=== PATIENT | female | born 1980 | race Two or more races ===

== ENCOUNTER 2020-09-29 06:34 | Emergency (ER) | payer SELFPAY ==
[~2020-09-29] VITALS: Ht 185.4 cm; Wt 105.3 kg
--- NOTE | 2020-09-29 07:00 | PHYS DOC ---
Past History Past Medical History: Diabetes, Hypertension Past Surgical History: Tubal ligation General Adult EDM: Chief Complaint: ABDOMINAL PAIN HPI: HPI: Patient is a 40-year-old female who presents to ER today for evaluation of low abdominal pain with nausea and some loose stool for the last 3 days. Patient denies any cough or fever. Patient also complain of frequent urination. Patient denies being exposed to anybody who tested positive for COVID-19. Patient has history of diabetic, on insulin. He also has history of hypertension in the past, was on medication in the past but had not been on any medication for the last year because her blood pressure was normalized. Patient said whenever she comes to the hospital her blood pressure always elevated. Patient denies any chest pain or any trouble breathing. Review of Systems: Review of Systems: Constitutional: Denies fever or chills Eyes: Denies change in visual acuity HENT: Denies nasal congestion or sore throat Respiratory: Denies cough or shortness of breath Cardiovascular: Denies chest pain or edema GI: Positive for abdominal pain with nausea, loose stool, no vomiting. : Denies dysuria . Denies any rash in private area. Positive for urinary frequency Musculoskeletal: Denies back pain or joint pain Integument: Denies rash Neurologic: Denies headache, focal weakness or sensory changes Endocrine: Denies polyuria or polydipsia Lymphatic: Denies swollen glands Psychiatric: Denies depression or anxiety Allergies: Allergies: Allergies Coded Allergies Type Severity Reaction Last Updated Verified No Known Drug Allergies 09/29/20 No Physical Exam: PE: Constitutional: Well developed, well nourished, no acute distress, non-toxic appearance. [] HENT: Normocephalic, atraumatic, bilateral external ears normal, oropharynx moist, no oral exudates, nose normal. [] Eyes: PERRLA, EOMI, conjunctiva normal, no discharge. [] Neck: Normal range of motion, no tenderness, supple, no stridor. [] Cardiovascular:Heart rate regular rhythm, no murmur [] Lungs & Thorax: Bilateral breath sounds clear to auscultation [] Abdomen: Bowel sounds normal, soft, there is tenderness to palpation in suprapubic area, no masses, no pulsatile masses. [] Skin: Warm, dry, no erythema, no rash. [] Back: No tenderness, no CVA tenderness. [] Extremities: No tenderness, no cyanosis, no clubbing, ROM intact, no edema. [] Neurologic: Alert and oriented X 3, normal motor function, normal sensory function, no focal deficits noted. [] Psychologic: Affect normal, judgement normal, mood normal. [] Current Patient Data: Labs: Laboratory Tests Test 09/29/20 07:30 White Blood Count 6.6 x10^3/uL Red Blood Count 3.58 x10^6/uL Hemoglobin 10.0 g/dL Hematocrit 31.7 % Mean Corpuscular Volume 88 fL Mean Corpuscular Hemoglobin 28 pg Mean Corpuscular Hemoglobin Concent 32 g/dL Red Cell Distribution Width 15.8 % Platelet Count 323 x10^3/uL Neutrophils (%) (Auto) 70 % Lymphocytes (%) (Auto) 20 % Monocytes (%) (Auto) 7 % Eosinophils (%) (Auto) 3 % Basophils (%) (Auto) 1 % Neutrophils # (Auto) 4.6 x10^3uL Lymphocytes # (Auto) 1.3 x10^3/uL Monocytes # (Auto) 0.4 x10^3/uL Eosinophils # (Auto) 0.2 x10^3/uL Basophils # (Auto) 0.1 x10^3/uL Urine Collection Type Unknown Urine Color Yellow Urine Clarity Hazy Urine pH 7.0 Urine Specific Healy 1.020 Urine Protein Neg Urine Glucose (UA) >=1000 mg/dL Urine Ketones (Stick) Neg mg/dL Urine Blood Trace Urine Nitrite Neg Urine Bilirubin Neg Urine Urobilinogen Dipstick 0.2 mg/dL Urine Leukocyte Esterase Small Urine RBC 3-5 /HPF Urine WBC 11-20 /HPF Urine Squamous Epithelial Cells Mod /LPF Urine Bacteria Few /HPF Urine Trichomonas Present Sodium Level 132 mmol/L Potassium Level 4.2 mmol/L Chloride Level 99 mmol/L Carbon Dioxide Level 27 mmol/L Anion Gap 6 Blood Urea Nitrogen 16 mg/dL Creatinine 1.1 mg/dL Estimated GFR (Cockcroft-Gault) 54.5 BUN/Creatinine Ratio 15 Glucose Level 402 mg/dL Calcium Level 9.5 mg/dL Total Bilirubin 0.4 mg/dL Aspartate Amino Transf (AST/SGOT) 26 U/L Alanine Aminotransferase (ALT/SGPT) 32 U/L Alkaline Phosphatase 61 U/L Total Protein 7.1 g/dL Albumin 3.6 g/dL Albumin/Globulin Ratio 1.0 Lipase 50 U/L Current Medications Medications (Trade) Dose Ordered Sig/Dileep Route PRN Reason Start Time Stop Time Status Last Admin Dose Admin Ondansetron HCl (Zofran) 4 mg 1X ONCE IVP 09/29/20 07:15 09/29/20 07:16 DC 09/29/20 07:34 Sodium Chloride 1,000 ml @ 1,000 mls/hr 1X ONCE IV 09/29/20 08:30 09/29/20 09:29 Morphine Sulfate (Morphine 4mg Syringe) 4 mg 1X ONCE IV 09/29/20 08:30 09/29/20 08:31 DC Ceftriaxone Sodium 1 gm/ Sodium Chloride 50 ml @ 100 mls/hr 1X ONCE IV 09/29/20 08:30 09/29/20 08:59 DC Iohexol (Omnipaque 300 Mg/ml) 75 ml 1X ONCE IV 09/29/20 08:30 09/29/20 08:35 DC EKG: EKG: [] Radiology/Procedures: Radiology/Procedures: [place] [address] IMAGING REPORT Signed PATIENT: OLMAN PEDROZA ACCOUNT: [id number] : 1980 LOCATION: ER AGE: 40 SEX: F EXAM STATUS: REG ER ORD. PHYSICIAN: JUWAN ALMONTE DO REASON: LOWER ABDOMINAL PAIN PROCEDURE: CT ABD PELV W/ IV CONTRST ONLY CT ABD PELV W/ IV CONTRST ONLY History: LOWER ABDOMINAL PAIN Comparison: None. Technique: After administration of intravenous contrast, helical CT of the abdomen and pelvis was performed from the lung bases through the ischial tuberosities. Coronal and sagittal reconstructions were obtained. 75 mL of Omnipaque 350 were used. One or more of the following dose reduction techniques were utilized: Automated exposure control (AEC), Adjustment of mA and/or kV according to patient size, Use of iterative reconstruction technique such as ASiR, CT scan done according to ALARA and image gently/image wisely Abdomen Findings: The visualized lung bases are clear. The liver, gallbladder, pancreas, spleen, and bilateral adrenal glands are normal. Symmetric renal enhancement. Punctate bilateral nonobstructive renal calculi. There is no hydronephrosis. The visualized loops of small bowel are normal. Normal caliber large bowel. Large colonic stool burden. Appendix is normal. There is no free fluid. There is no mesenteric or retroperitoneal adenopathy. The abdominal aorta is normal in caliber. Pelvis Findings: Urinary bladder is normal. Uterus is present. Right adnexal 2 cm cyst, likely physiologic. Mild pelvic free fluid. There is no pelvic or inguinal adenopathy. Mild chronic appearing height loss at T10. IMPRESSION: 1. No acute findings. 2. Large colonic stool burden, which may reflect constipation. 3. Punctate bilateral nonobstructive renal calculi. Electronically signed by: Dre Cervantes MD (09/29/2020 9:07 AM) [id number] DICTATED AND SIGNED BY: DRE CERVANTES MD DATE: 09/29/20906 CC: MANOJ ARRIETA; JUWAN ALMONTE DO ~MTH0 0 Heart Score: Risk Factors: Risk Factors: DM, Current or recent (<one month) smoker, HTN, HLP, family history of CAD, obesity. Risk Scores: Score 0 - 3: 2.5% MACE over next 6 weeks - Discharge Home Score 4 - 6: 20.3% MACE over next 6 weeks - Admit for Clinical Observation Score 7 - 10: 72.7% MACE over next 6 weeks - Early Invasive Strategies Course & Med Decision Making: Course & Med Decision Making Pertinent Labs and Imaging studies reviewed. (See chart for details) Patient is a 40-year-old female who presented to ER due to abdominal pain, she was found to have trichomonas, UTI, constipation, hypertension. Her blood pressure improved to 150/100 with a heart rate of 74 beats per minutes, without any treatment. Patient will be discharged home she will need to follow-up with her family physician for reevaluation in a couple days. She was given instruction to take stool softener or laxative at home for her constipation Sana Disclaimer: Sana Disclaimer: This electronic medical record was generated, in whole or in part, using a voice recognition dictation system. Departure Departure: Impression: Primary Impression: Abdominal pain Additional Impressions: Hypertension Trichomonal infection Hyperglycemia UTI (urinary tract infection) Disposition: 01 DC HOME SELF CARE/HOMELESS Condition: IMPROVED Referrals: PCPMANOJ (PCP) follow up with your doctor next week. Patient Instructions: Constipation, Adult, Hypertension, Trichomoniasis, Urinary Tract Infection Additional Instructions: Thank you for visiting our Emergency Department. We appreciate you trusting us with your care. If any additional problems come up don't hesitate to return to visit us. Please follow up with your primary care provider so they can plan additional care if needed and know about the problem that you had. If symptoms worsen come back to the Emergency Department. Any concerning symptoms that start such as chest pain, shortness of air, weakness or numbness on one side of the body, running high fevers or any other concerning symptoms return to the ER. Scripts Sulfamethoxazole/Trimethoprim (BACTRIM DS TABLET) 1 Each Tablet 1 TAB PO BID for uti for 7 Days, #14 TAB 0 Refills Prov: JUWAN ALMONTE DO 09/29/20 Metronidazole (FLAGYL) 500 Mg Tablet 1 TAB PO BID for trichomonas for 7 Days, #14 TAB Prov: JUWAN ALMONTE DO 09/29/20 JUWAN ALMONTE DO Sep 29, 2020 07:00
[2020-09-29] MEDS ORDERED: ONDANSETRON PF 4 MG/2 ML VIAL. IVP ONE (07:15)
[2020-09-29 07:58] LABS: BASO # 0.1 x10^3/uL (0.0-0.2); BASO % 1 % (0-3); EOS # 0.2 x10^3/uL (0.0-0.7); EOS % 3 % (0-3); HEMATOCRIT 31.7 % (36.0-47.0); LYMPH # 1.3 x10^3/uL (1.0-4.8); LYMPH % 20 % (24-48); MEAN CORPUSCULAR HEMOGLOBIN 28 pg (25-35); MEAN CORPUSCULAR HGB CONC 32 g/dL (31-37); MEAN CORPUSCULAR VOLUME 88 fL (79-100); MONO # 0.4 x10^3/uL (0.0-1.1); MONO % 7 % (0-9); NEUT # 4.6 x10^3uL (1.8-7.7); NEUT % 70 % (31-73); PLATELET COUNT 323 x10^3/uL (140-400); RED BLOOD COUNT 3.58 x10^6/uL (3.50-5.40); RED CELL DISTRIBUTION WIDTH 15.8 % (11.5-14.5); WHITE BLOOD COUNT 6.6 x10^3/uL (4.0-11.0)
[2020-09-29 08:06] LABS: CALCIUM 9.5 mg/dL (8.5-10.1); CREATININE 1.1 mg/dL (0.6-1.0); GFR 54.5; POTASSIUM 4.2 mmol/L (3.5-5.1)
[2020-09-29 08:12] LABS: ALBUMIN 3.6 g/dL (3.4-5.0); TOTAL BILIRUBIN 0.4 mg/dL (0.2-1.0); TOTAL PROTEIN 7.1 g/dL (6.4-8.2)
[2020-09-29 08:18] LABS: BILIRUBIN,URINE NEG (NEG); CLARITY,URINE HAZY; COLOR,URINE YELLOW; GLUCOSE,URINE >=1000 mg/dL (NEG)
[2020-09-29 08:19] LABS: BACTERIA,URINE FEW /HPF (0-FEW); NITRITE,URINE NEG (NEG); SQUAMOUS EPITHELIAL CELL,UR MOD /LPF; TRICHOMONAS,URINE PRESENT; UROBILINOGEN,URINE 0.2 mg/dL (0.2 mg/dL)
[2020-09-29] MEDS ORDERED: IV NORMAL SALINE 1,000ML 1,000 ML IV ONE (08:30)
[2020-09-29] MEDS ORDERED: MORPHINE SULFATE 4 MG/ML DISP.SYRIN. IV ONE (08:30)
[2020-09-29] MEDS ORDERED: IOHEXOL 300 MG/ML 75 ML VIAL. IV ONE (08:30)
--- NOTE | 2020-09-29 09:10 | RAD ---
CT ABD PELV W/ IV CONTRST ONLY History: LOWER ABDOMINAL PAIN Comparison: None. Technique: After administration of intravenous contrast, helical CT of the abdomen and pelvis was performed from the lung bases through the ischial tuberosities. Coronal and sagittal reconstructions were obtained. 75 mL of Omnipaque 350 were used. One or more of the following dose reduction techniques were utilized: Automated exposure control (AEC), Adjustment of mA and/or kV according to patient size, Use of iterative reconstruction technique such as ASiR, CT scan done according to ALARA and image gently/image wisely Abdomen Findings: The visualized lung bases are clear. The liver, gallbladder, pancreas, spleen, and bilateral adrenal glands are normal. Symmetric renal enhancement. Punctate bilateral nonobstructive renal calculi. There is no hydronephrosis. The visualized loops of small bowel are normal. Normal caliber large bowel. Large colonic stool burden. Appendix is normal. There is no free fluid. There is no mesenteric or retroperitoneal adenopathy. The abdominal aorta is normal in caliber. Pelvis Findings: Urinary bladder is normal. Uterus is present. Right adnexal 2 cm cyst, likely physiologic. Mild pelvic free fluid. There is no pelvic or inguinal adenopathy. Mild chronic appearing height loss at T10. IMPRESSION: 1. No acute findings. 2. Large colonic stool burden, which may reflect constipation. 3. Punctate bilateral nonobstructive renal calculi. Electronically signed by: Ajit Cervantes MD (09/29/2020 9:07 AM) [id number]
[2020-09-29] MEDS ORDERED: IV NORMAL SALINE 50ML 50 ML ONE (09:57)
[2020-09-29] MEDS ORDERED: cefTRIAXone SODIUM 1 GM VIAL ONE (09:57)
[2020-09-29] MEDS ORDERED: SULF1TAB24 PO (10:26)
[2020-09-29] MEDS ORDERED: METR500T PO (10:26)
[2020-09-29 10:27] VITALS: BP 157/89
== END 2020-09-29 11:05 | disposition home or self-care (01) ==
LOC: ER 06:34
DX: N39.0 Urinary tract infection, site not specified (principal); E11.65 Type 2 diabetes mellitus with hyperglycemia; A59.9 Trichomoniasis, unspecified; I10 Essential (primary) hypertension; Z98.51 Tubal ligation status
CPT/HCPCS: 36415; 74177; 80053; 81001; 82947; 83690; 85025; 87086; 96365; 96375; 99285; J0696; J2270; J2405; J7030

== ENCOUNTER → 2020-11-05 | Outpatient (CLI) | payer OTHER ==
[~2020-11-05] MED LIST: METR500T PO; SULF1TAB24 PO
--- NOTE | 2020-11-05 17:30 | RAD ---
US THYROID History: Reason: PAIN/SWELLING OF NECK; HX OF GRAVES DISEASE / Spl. Instructions: / History: Comparison: None. Technique: Multiple grayscale and color Doppler images of the thyroid gland were obtained. Findings: Right thyroid lobe: 2.4 x 0.8 x 0.9 cm. Heterogeneous echotexture. Left thyroid lobe: 3.1 x 0.9 x 0.6 cm. Heterogeneous echotexture. Isthmus: 0.2 cm. Solid hypoechoic left inferior thyroid nodule measures 0.8 x 0.8 x 0.5 cm. TI-RADS 4. ACR Thyroid Imaging, Reporting And Data System (TI-RADS): White Paper Of The ACR TI-RADS Committee. J ournal of the [employer], volume 14, issue 5, pages 587-595 (March 2017). Heterogeneous lesion within the right neck measures 1.5 x 0.8 x 0.7 cm. No discrete fatty hilum. IMPRESSION: 1. Small heterogeneous thyroid, compatible with known history of thyroiditis. 2. Heterogeneous right neck lesion, may represent pathologic lymph node. Recommend CT neck soft tiss ue to further evaluate. 3. TI-RADS 4 left inferior thyroid nodule. Recommend ultrasound follow-up. Depending on results of C T fine-needle aspiration may be warranted. Electronically signed by: Bill Pagan DO (11/05/2020 5:27 PM) [id number]
== END ==
LOC: US 09:57
PROVIDERS: ATTEND Nurse Practitioner
DX: E04.1 Nontoxic single thyroid nodule (principal)
CPT/HCPCS: 76536

== ENCOUNTER 2021-05-20 17:45 | Emergency (ER) | payer OTHER ==
[~2021-05-20] VITALS: Ht 185.4 cm; Wt 105.3 kg
[2021-05-20 17:50] VITALS: BP 151/86
[2021-05-20] MEDS ORDERED: DEXTROSE 50% 25 GM / 50ML DISP.SYRIN. IV ONE (18:00)
[2021-05-20 18:23] LABS: BASO % 0 % (0-3); CALCIUM 10.2 mg/dL (8.5-10.1); EOS # 0.3 x10^3/uL (0.0-0.7); EOS % 4 % (0-3); GFR 60.5; HEMATOCRIT 32.3 % (36.0-47.0); HEMOGLOBIN 10.4 g/dL (12.0-15.5); LYMPH # 2.6 x10^3/uL (1.0-4.8); LYMPH % 37 % (24-48); MEAN CORPUSCULAR HEMOGLOBIN 29 pg (25-35); MEAN CORPUSCULAR HGB CONC 32 g/dL (31-37); MEAN CORPUSCULAR VOLUME 90 fL (79-100); MONO # 0.4 x10^3/uL (0.0-1.1); MONO % 6 % (0-9); NEUT # 3.8 x10^3uL (1.8-7.7); NEUT % 53 % (31-73); PLATELET COUNT 410 x10^3/uL (140-400); POTASSIUM 3.8 mmol/L (3.5-5.1); RED CELL DISTRIBUTION WIDTH 14.9 % (11.5-14.5); WHITE BLOOD COUNT 7.2 x10^3/uL (4.0-11.0)
[2021-05-20 18:29] LABS: ALBUMIN/GLOBULIN RATIO 1.1 (1.0-1.7); MAGNESIUM 2.2 mg/dL (1.8-2.4); TOTAL BILIRUBIN 0.4 mg/dL (0.2-1.0); TOTAL PROTEIN 7.8 g/dL (6.4-8.2)
--- NOTE | 2021-05-20 18:47 | PHYS DOC ---
Past History Past Medical History: Diabetes, Hypertension Additional Past Medical Histor: NEUROPATHY, GRAVES DISEASE, HERPES Past Surgical History: Tubal ligation Additional Past Surgical Histo: CARPAL TUNNEL, R ANKLE, L ELBOW Smoking: Quit Less Than 1 Year Alcohol Use: Rarely Drug Use: None General Adult EDM: Chief Complaint: HYPOGLYCEMIA HPI: HPI: Patient is a 41 year old female who presents with low blood sugar. Patient has a history of type 2 diabetes and her medication was changed from Lantus to Levemir yesterday. She took the Levemir this morning and also states using 4 units of regular insulin during the day. She states her blood glucose was at 88 around 5 pm and it dropped after that. She states the lowest was 43 before she came in to the ED. She says she drank juice but that did not help. She complains of mild dizziness and nausea. Denies chest pain, SOB. Denies vision changes but has a mild headache. She reports her glucose levels fluctuate and similar incidents have happened before. Review of Systems: Review of Systems: Constitutional: Denies fever or chills Eyes: Denies redness or eye pain. Denies vision changes HENT: Denies nasal congestion or sore throat Respiratory: Denies cough or shortness of breath Cardiovascular: Denies chest pain or palpitations GI: Denies abdominal pain or vomiting. Has mild nausea : Denies dysuria or hematuria Musculoskeletal: Denies back pain or joint pain Integument: Denies rash or skin lesions Neurologic: Has mild headache. Denies focal weakness or sensory changes Complete systems were reviewed and found to be within normal limits, except as documented in this note. Current Medications: Current Meds: Current Medications Medications (Trade) Dose Ordered Sig/[facility] Start Time Stop Time Status Last Admin Dose Admin Dextrose (Dextrose 50%-Water Syringe) 25 gm 1X ONCE 05/20/21 18:00 05/20/21 18:03 DC 05/20/21 18:14 25 GM Allergies: Allergies: Allergies Coded Allergies Type Severity Reaction Last Updated Verified No Known Drug Allergies 09/29/20 No Physical Exam: PE: Constitutional: Well developed, well nourished, drowsy HENT: Normocephalic, atraumatic Eyes: PERRL, EOMI, conjunctiva normal, no discharge Neck: Normal range of motion, no tenderness, supple Lungs & Thorax: No respiratory distress, equal chest rise and fall Abdomen: Soft, no tenderness Skin: Warm, dry, no erythema, no rash Back: No tenderness, no CVA tenderness Extremities: No tenderness, ROM intact, no edema Neurologic: Alert and oriented X 3, normal motor function, normal sensory function, no focal deficits noted Psychologic: Affect normal, judgment normal Current Patient Data: Labs: Laboratory Tests Test 05/20/21 17:30 05/20/21 17:49 White Blood Count 7.2 x10^3/uL (4.0-11.0) Red Blood Count 3.60 x10^6/uL (3.50-5.40) Hemoglobin 10.4 g/dL (12.0-15.5) L Hematocrit 32.3 % (36.0-47.0) L Mean Corpuscular Volume 90 fL (79-100) Mean Corpuscular Hemoglobin 29 pg (25-35) Mean Corpuscular Hemoglobin Concent 32 g/dL (31-37) Red Cell Distribution Width 14.9 % (11.5-14.5) H Platelet Count 410 x10^3/uL (140-400) H Neutrophils (%) (Auto) 53 % (31-73) Lymphocytes (%) (Auto) 37 % (24-48) Monocytes (%) (Auto) 6 % (0-9) Eosinophils (%) (Auto) 4 % (0-3) H Basophils (%) (Auto) 0 % (0-3) Neutrophils # (Auto) 3.8 x10^3uL (1.8-7.7) Lymphocytes # (Auto) 2.6 x10^3/uL (1.0-4.8) Monocytes # (Auto) 0.4 x10^3/uL (0.0-1.1) Eosinophils # (Auto) 0.3 x10^3/uL (0.0-0.7) Basophils # (Auto) 0.0 x10^3/uL (0.0-0.2) Sodium Level 142 mmol/L (136-145) Potassium Level 3.8 mmol/L (3.5-5.1) Chloride Level 103 mmol/L (98-107) Carbon Dioxide Level 32 mmol/L (21-32) Anion Gap 7 (6-14) Blood Urea Nitrogen 18 mg/dL (7-20) Creatinine 1.0 mg/dL (0.6-1.0) Estimated GFR (Cockcroft-Gault) 60.5 BUN/Creatinine Ratio 18 (6-20) Glucose Level 55 mg/dL (70-99) L Calcium Level 10.2 mg/dL (8.5-10.1) H Magnesium Level 2.2 mg/dL (1.8-2.4) Total Bilirubin 0.4 mg/dL (0.2-1.0) Aspartate Amino Transferase (AST) 27 U/L (15-37) Alanine Aminotransferase (ALT) 37 U/L (14-59) Alkaline Phosphatase 57 U/L (46-116) Total Protein 7.8 g/dL (6.4-8.2) Albumin 4.0 g/dL (3.4-5.0) Albumin/Globulin Ratio 1.1 (1.0-1.7) Glucose (Fingerstick) 57 mg/dL (70-99) L Vital Signs: Vital Signs Date Time Temp Pulse Resp B/P (MAP) Pulse Ox O2 Delivery O2 Flow Rate FiO2 05/20/21 17:50 98.3 66 16 151/86 99 Room Air EKG: EKG: [] Radiology/Procedures: Radiology/Procedures: [] Heart Score: C/O Chest Pain: N/A Course & Med Decision Making: Course & Med Decision Making Patient is a 41 year old female presenting due to symptomatic hypoglycemia. She noted her fingerstick glucose was 43 at home. She switched from Lantus to Levemir yesterday. Patient has had similar events in the recent past. Her glucose was 55 upon arrival. She was given IV Dextrose 50% and she ate food in the ED. Her glucose prior to discharge was 154. Urinalysis showed signs of a possible infection, moderate pyuria and many bacteria. Antibiotic treatment started and Cephalexin prescribed. Patient counseled to decrease Levemir to 10units in AM and PM with sliding scale in between and increase slowly. Patient stable for discharge with outpatient follow-up with PCP. Discussed findings and plan with patient, who acknowledges understanding and agreement. Sana Disclaimer: Sana Disclaimer: This electronic medical record was generated, in whole or in part, using a voice recognition dictation system. Departure Departure: Impression: Primary Impression: Hypoglycemia Additional Impression: UTI (urinary tract infection) Qualified Codes: N30.00 - Acute cystitis without hematuria Disposition: HOME / SELF CARE / HOMELESS Condition: STABLE Referrals: AMILCAR ZHOU MD (PCP) Patient Instructions: Hypoglycemia (Low Blood Sugar), Urinary Tract Infection, [id number] Additional Instructions: Decrease Levemir to 10units in AM and PM with sliding scale in between. May slowly increase by 2 units if requiring increased sliding scale. Follow closely with your doctor for further evaluation. Scripts Cephalexin (CEPHALEXIN) 500 Mg Tablet 1 TAB PO TID for UTI for 7 Days, #21 TAB Prov: SARA PACHECO DO 05/20/21 SARA PACHECO DO May 20, 2021 18:47
[2021-05-20 20:36] LABS: BILIRUBIN,URINE NEG (NEG); CLARITY,URINE TURBID; COLOR,URINE YELLOW; GLUCOSE,URINE 100 mg/dL (NEG); NITRITE,URINE NEG (NEG); UROBILINOGEN,URINE 0.2 mg/dL (0.2 mg/dL)
[2021-05-20 20:37] LABS: BACTERIA,URINE MANY /HPF (0-FEW); SQUAMOUS EPITHELIAL CELL,UR FEW /LPF
[2021-05-20] MEDS ORDERED: IV NORMAL SALINE 50ML 50 ML ONE (20:46)
[2021-05-20] MEDS ORDERED: cefTRIAXone SODIUM 1 GM VIAL ONE (20:46)
[2021-05-20] MEDS ORDERED: CEPH500T PO ×2 (21:14→21:17)
== END 2021-05-20 21:21 | disposition home or self-care (01) ==
LOC: ER 17:45
DX: E11.649 Type 2 diabetes mellitus with hypoglycemia without coma (principal); N30.00 Acute cystitis without hematuria; I10 Essential (primary) hypertension; E11.40 Type 2 diabetes mellitus with diabetic neuropathy, unspecified; Z87.891 Personal history of nicotine dependence
CPT/HCPCS: 36415; 80053; 81001; 82947; 83735; 85025; 87077; 87086; 87186; 96365; 96375; 99284; J0696

== ENCOUNTER 2021-06-24 16:20 | Emergency (ER) | payer OTHER ==
[~2021-06-24] VITALS: Ht 185.4 cm; Wt 103.8 kg
[~2021-06-24 16:20] MED LIST changes: +CEPH500T PO
--- NOTE | 2021-06-24 17:21 | PHYS DOC ---
Past History Past Medical History: Diabetes, Hypertension Additional Past Medical Histor: NEUROPATHY, GRAVES DISEASE, HERPES (TITO SALGUERO APRN) Past Surgical History: Tubal ligation, Other Additional Past Surgical Histo: CARPAL TUNNEL, R ANKLE, L ELBOW (TITO SALGUERO APRN) Smoking: Quit Less Than 1 Year Alcohol Use: Rarely Drug Use: None (TITO SALGUERO APRN) General Adult EDM: Chief Complaint: LOWER EXTREMITY SWELLING HPI: HPI: Patient is a 41-year-old female being seen in the ER for diabetic ulcers to her heels that started 2 weeks ago. Patient has a history of diabetes and neuropathy. Patient denies shortness of breath, chest pain, fevers, inability to bear weight/ambulate. (TITO SALGUERO APRN) Review of Systems: Review of Systems: 14 body systems of the review of systems have been reviewed. See HPI for pertinent positive and negative responses, otherwise all other systems are negative, nonpertinent or noncontributory (TITO SALGUERO APRN) Allergies: Allergies: Allergies Coded Allergies Type Severity Reaction Last Updated Verified No Known Drug Allergies 09/29/20 No (TITO SALGUERO APRN) Physical Exam: PE: Constitutional: Well developed, well nourished, no acute distress, non-toxic appearance. [] HENT: Normocephalic, atraumatic Eyes: PERRL, EOMI, conjunctiva normal, no discharge. [] Neck: Normal range of motion, no tenderness, supple, no stridor. [] Cardiovascular:Heart rate regular rhythm, no murmur [] Lungs & Thorax: Bilateral breath sounds clear to auscultation [] Abdomen: Bowel sounds normal, soft, no tenderness, no masses, no pulsatile masses. [] Skin: Warm, dry, no erythema, no rash. [] Back: Normal range of motion Extremities: No tenderness, no cyanosis, no clubbing, ROM intact, no edema. 2 cm ulceration noted to the heel of the right foot. 4 cm ulceration noted to the heel of the left foot. Strong DP and PT pulses bilaterally. Range of motion intact leg. Neurologic: Alert and oriented X 3, normal motor function, normal sensory func tion, no focal deficits noted. [] Psychologic: Affect normal, judgement normal, mood normal. [] (TITO SALGUERO APRN) Current Patient Data: Vital Signs: Vital Signs Date Time Temp Pulse Resp B/P (MAP) Pulse Ox O2 Delivery O2 Flow Rate FiO2 06/24/21 16:45 98.5 64 16 173/87 100 Room Air (TITO SALGUERO APRN) EKG: EKG: [] (TITO SALGUERO APRN) Radiology/Procedures: Radiology/Procedures: PROCEDURE: FOOT BILAT 2V Exam: Bilateral feet 2 views INDICATION: Bilateral foot pain TECHNIQUE: Frontal and lateral views of the left and right foot. Comparisons: None FINDINGS: Left foot: Bone mineralization is normal. No acute or healed fractures. Soft tissues are unremarkable. Joint spaces are well-maintained. Right foot: Bone mineralization is normal. No acute or healed fractures. Soft tissues are unremarkable. Joint spaces are well-maintained. Fixation device at the distal fibula and tibia. IMPRESSION: No acute osseous abnormality of the right foot or left foot Electronically signed by: Michael Morales MD (06/24/2021 7:10 PM) [facility] DICTATED AND SIGNED BY: MICHAEL MORALES MD DATE: 06/24/211907 CC: TITO SALGUERO APRN; AMILCAR ZHOU MD ~MTH0 0 [] (TITO SALGUERO APRN) Heart Score: C/O Chest Pain: No Risk Factors: Risk Factors: DM, Current or recent (<one month) smoker, HTN, HLP, family history of CAD, obesity. Risk Scores: Score 0 - 3: 2.5% MACE over next 6 weeks - Discharge Home Score 4 - 6: 20.3% MACE over next 6 weeks - Admit for Clinical Observation Score 7 - 10: 72.7% MACE over next 6 weeks - Early Invasive Strategies (TITO SALGUERO APRN) Course & Med Decision Making: Course & Med Decision Making Pertinent Labs and Imaging studies reviewed. (See chart for details) [] Patient is a 41-year-old female being seen in the ER for diabetic foot ulcers to bilateral heels that started 2 weeks ago. Work-up in the ER consisted of blood work and x-rays to rule out osteomyelitis. X-rays were negative for any acute findings. Blood work unremarkable. Patient discharged home with an antibiotic. Patient given first dose in the ER. Patient's blood glucose was 377 fingerstick. She is not in DKA. Patient has been eating and has not taken her insulin. Patient advised to monitor her blood sugars at home and take her medications as directed. Patient advised to follow-up with her primary care provider. I discussed with patient all findings and diagnostic testing as well as the need to follow-up with PCP for further evaluation and treatment or return to the ER if any new or worsening symptoms. Strict return precautions were also discussed at length. Patient voiced understanding and agreement with the plan. Patient is hemodynamically stable at the time of disposition. (TITO SALGUERO APRN) Course & Med Decision Making Did not see or evaluate patient. Agree with GENERAL SALES MANAGER's work-up and disposition per note. (CEZAR BUSCH MD) Dragon Disclaimer: Dragon Disclaimer: This electronic medical record was generated, in whole or in part, using a voice recognition dictation system. (TITO SALGUERO APRN) Departure Departure: Impression: Primary Impression: Diabetic foot ulcer Qualified Codes: E08.621 - Diabetes mellitus due to underlying condition with foot ulcer; L97.401 - Non-pressure chronic ulcer of unspecified heel and midfoot limited to breakdown of skin Disposition: 01 HOME / SELF CARE / HOMELESS Condition: GOOD Referrals: AMILCAR ZHOU MD (PCP) Patient Instructions: Skin Infections Additional Instructions: You were seen in the ER for diabetic ulcers to both of your heels. Your physical exam was reassuring and your blood work was unremarkable. The x-ray did not show any osteomyelitis. You were treated with an antibiotic in the ER and discharged home with a prescription. Please take all of the antibiotic. Your blood sugar was noted to be 377. Please take your medications as prescribed. Monitor your blood sugar at home and take your insulin as prescribed. Please follow-up with your primary care provider tomorrow regarding your ER visit. If you develop fevers refractory to treatment, increased pain, intractable nausea/vomiting, chest pain, shortness of breath please return to the ER. EMERGENCY DEPARTMENT GENERAL DISCHARGE INSTRUCTIONS Thank you for coming to [facility] (ED) today and trusting us with you care. We trust that you had a positivie experience in our Emergency Department. If you wish to speak to the department management, you may call the director at [phone]. YOUR FOLLOW UP INSTRUCTIONS ARE FOLLOWS: 1. Do you have a private Doctor? If you do not have a private doctor, please a sk for a resource list of physicians or clinics that may be able to assist you with follow up care. 2. The Emergency Physician has interpreted your x-rays. The X-Ray specialist will also review them. If there is a change in the findings, you will be notified in 48 hours when at all possible. 3. A lab test or culture has been done, your results will be reviewed and you will be notified if you need a change in treatment. ADDITIONAL INSTRUCTIONS AND INFORMATION: 1. Your care today has been supervised by a physician who is specially trained in emergency care. Many problems require more than one evaluation for a complete diagnosis and treatment. We recommend that you schedule your follow up appointment as recommended to ensure complete treatment of you illness or injury. If you are unable to obtain follow up care and continue to have a problem, or if your condition worsens, we recommend that you return to the ED. 2. We are not able to safely determine your condition over the phone nor are we able to give sound medical advice over the phone. For these safety reasons, if you call for medical advice we will ask you to come to the ED for further evaluation. 3. If you have any questions regarding these discharge instructions please call the ED at [phone]. SAFETY INFORMATION: In the interest of safety, wellness, and injury prevention; we encourage you to wear your sealbelt, if you smoke; quite smoking, and we encourage family to use a protective helmet for bicycling and other sporting events that present an increased risk for head injury. IF YOUR SYMPTOMS WORSEN OR NEW SYMPTOMS DEVELOP, OR YOU HAVE CONCERNS ABOUT YOUR CONDITION; OR IF YOUR CONDITION WORSENS WHILE YOU ARE WAITING FOR YOUR FOLLOW UP APPOINTMENT; EITHER CONTACT YOUR PRIMARY CARE DOCTOR, THE PHYSICIAN WHOSE NAME AND NUMBER YOU WERE GIVEN, OR RETURN TO THE ED IMMEDIATELY. Scripts Doxycycline Hyclate (DOXYCYCLINE HYCLATE) 100 Mg Tablet 1 TAB PO BID for diabetic foot ulcer for 7 Days, #14 TAB 0 Refills Prov: TITO SALGUERO APRN 06/24/21 Cephalexin (CEPHALEXIN) 500 Mg Tablet 1 TAB PO QID for diabetic foot ulcer for 7 Days, #27 TAB 0 Refills Prov: TITO SALGUERO APRN 06/24/21 TITO SALGUERO APRN Jun 24, 2021 17:21 CEZAR BUSCH MD Jun 25, 2021 00:50
[2021-06-24 18:21] LABS: BASO % 1 % (0-3); EOS # 0.2 x10^3/uL (0.0-0.7); EOS % 3 % (0-3); HEMATOCRIT 34.1 % (36.0-47.0); HEMOGLOBIN 11.1 g/dL (12.0-15.5); LYMPH # 1.7 x10^3/uL (1.0-4.8); LYMPH % 25 % (24-48); MEAN CORPUSCULAR HEMOGLOBIN 29 pg (25-35); MEAN CORPUSCULAR HGB CONC 33 g/dL (31-37); MEAN CORPUSCULAR VOLUME 89 fL (79-100); MONO # 0.4 x10^3/uL (0.0-1.1); MONO % 6 % (0-9); NEUT # 4.6 x10^3uL (1.8-7.7); NEUT % 66 % (31-73); PLATELET COUNT 349 x10^3/uL (140-400); RED BLOOD COUNT 3.81 x10^6/uL (3.50-5.40); RED CELL DISTRIBUTION WIDTH 15.5 % (11.5-14.5)
[2021-06-24 18:32] LABS: GFR 60.5
[2021-06-24 18:38] LABS: ALBUMIN/GLOBULIN RATIO 0.8 (1.0-1.7); TOTAL BILIRUBIN 0.2 mg/dL (0.2-1.0); TOTAL PROTEIN 6.7 g/dL (6.4-8.2)
[2021-06-24 18:41] LABS: POTASSIUM 5.2 mmol/L (3.5-5.1)
--- NOTE | 2021-06-24 19:12 | RAD ---
Exam: Bilateral feet 2 views INDICATION: Bilateral foot pain TECHNIQUE: Frontal and lateral views of the left and right foot. Comparisons: None FINDINGS: Left foot: Bone mineralization is normal. No acute or healed fractures. Soft tissues are unremarkable. Joint spa clay are well-maintained. Right foot: Bone mineralization is normal. No acute or healed fractures. Soft tissues are unremarkable. Joint spa clay are well-maintained. Fixation device at the distal fibula and tibia. IMPRESSION: No acute osseous abnormality of the right foot or left foot Electronically signed by: Michael Williamson MD (06/24/2021 7:10 PM) REENA
[2021-06-24 20:05] LABS: CALCIUM 9.3 mg/dL (8.5-10.1); CREATININE 1.1 mg/dL (0.6-1.0); GFR 54.2; POTASSIUM 4.7 mmol/L (3.5-5.1)
[2021-06-24] MEDS ORDERED: CEPH500T PO (21:11)
[2021-06-24] MEDS ORDERED: DOXY100T PO (21:11)
[2021-06-24] MEDS ORDERED: DOXYCYCLINE HYCLATE 100 MG TABLET PO ONE (21:15)
[2021-06-24] MEDS ORDERED: CEPHALEXIN 250 MG CAPSULE PO ONE (21:15)
[2021-06-24 21:36] VITALS: BP 154/68
== END 2021-06-24 21:37 | disposition home or self-care (01) ==
LOC: ER 16:20
DX: E11.621 Type 2 diabetes mellitus with foot ulcer (principal); L97.529 Non-pressure chronic ulcer of other part of left foot with unspecified severity; E11.40 Type 2 diabetes mellitus with diabetic neuropathy, unspecified; I10 Essential (primary) hypertension; Z87.891 Personal history of nicotine dependence
CPT/HCPCS: 36415; 73620; 80048; 80053; 82947; 83605; 85025; 96374; 99284; J3010

== ENCOUNTER 2021-10-22 14:58 | Emergency (ER) | payer OTHER ==
[~2021-10-22] VITALS: Ht 170.2 cm; Wt 70.0 kg
[~2021-10-22 14:58] MED LIST changes: +DOXY100T PO
[2021-10-22] MEDS ORDERED: ONDANSETRON PF 4 MG/2 ML VIAL. ONE (15:16)
[2021-10-22 15:21] VITALS: BP 115/69
[2021-10-22] MEDS ORDERED: DEXTROSE 50% 25 GM / 50ML DISP.SYRIN. IV ONE (15:30)
[2021-10-22] MEDS ORDERED: ONDANSETRON PF 4 MG/2 ML VIAL. IVP ONE ×2 (15:30→17:30)
[2021-10-22] MEDS ORDERED: IV NORMAL SALINE 1,000ML 1,000 ML IV ONE (17:00)
[2021-10-22 17:03] LABS: BASO % 0 % (0-3); EOS # 0.2 x10^3/uL (0.0-0.7); EOS % 3 % (0-3); HEMATOCRIT 36.5 % (36.0-47.0); HEMOGLOBIN 11.4 g/dL (12.0-15.5); LYMPH # 1.7 x10^3/uL (1.0-4.8); LYMPH % 27 % (24-48); MEAN CORPUSCULAR HEMOGLOBIN 29 pg (25-35); MEAN CORPUSCULAR HGB CONC 31 g/dL (31-37); MEAN CORPUSCULAR VOLUME 91 fL (79-100); MONO # 0.4 x10^3/uL (0.0-1.1); MONO % 6 % (0-9); NEUT # 4.1 x10^3uL (1.8-7.7); NEUT % 64 % (31-73); PLATELET COUNT 292 x10^3/uL (140-400); RED BLOOD COUNT 4.02 x10^6/uL (3.50-5.40); RED CELL DISTRIBUTION WIDTH 14.5 % (11.5-14.5); WHITE BLOOD COUNT 6.4 x10^3/uL (4.0-11.0)
[2021-10-22 17:05] LABS: CALCIUM 9.8 mg/dL (8.5-10.1); CREATININE 1.4 mg/dL (0.6-1.0); GFR 49.7; POTASSIUM 4.5 mmol/L (3.5-5.1)
[2021-10-22 17:11] LABS: ALBUMIN 3.5 g/dL (3.4-5.0); ALBUMIN/GLOBULIN RATIO 0.8 (1.0-1.7); TOTAL BILIRUBIN 0.2 mg/dL (0.2-1.0); TOTAL PROTEIN 7.8 g/dL (6.4-8.2)
[2021-10-22 17:27] LABS: GLUCOSE,URINE NEG (NEG)
[2021-10-22 17:28] LABS: BACTERIA,URINE MOD /HPF (0-FEW); BILIRUBIN,URINE NEG (NEG); CLARITY,URINE CLEAR; COLOR,URINE YELLOW; HYALINE CASTS, URINE MOD /HPF; NITRITE,URINE NEG (NEG); SQUAMOUS EPITHELIAL CELL,UR MANY /LPF; UROBILINOGEN,URINE 0.2 mg/dL (0.2 mg/dL); WBC,URINE 20-40 /HPF (0-4)
[2021-10-22] MEDS ORDERED: NITROFURANTOIN MONOHYD/M-CRYST 100 MG CAPSULE. PO ONE (17:30)
--- NOTE | 2021-10-22 17:33 | PHYS DOC ---
General Adult EDM: Chief Complaint: HYPOGLYCEMIA HPI: HPI: Patient is a 41-year-old female who presents with hypoglycemia. Patient states that her machine was reading in the 30s at home. Patient was brought in by her . Patient states that she has vomited numerous times this morning. Patient reports drinking juice prior to arrival which increased her blood sugar to 100s. Patient's denying any symptoms at this time. Patient does report she was also diagnosed with a UTI yesterday and has not started taking her antibiotics yet. (HANANE CHRISTENSEN APRN) Review of Systems: Review of Systems: ROS At least 10 ROS systems have been reviewed and are negative except as documented in the HPI. General: Negative except as outlined in HPI above. Skin: Negative except as outlined in HPI above. HEENT: Negative except as outlined in HPI above. Neck: Negative except as outlined in HPI above. Respiratory: Negative except as outlined in HPI above.. Cardiovascular: Negative except as outlined in HPI above. Abdomen: Negative except as outlined in HPI above. : Negative except as outlined in HPI above. Back/MSK: Negative except as outlined in HPI above. Neuro: Negative except as outlined in HPI above. Psych: Negative except as outlined in HPI above. (HANANE CHRISTENSEN APRN) Current Medications: Current Meds: Current Medications Medications (Trade) Dose Ordered Sig/Dileep Start Time Stop Time Status Last Admin Dose Admin Dextrose (Dextrose 50%-Water Syringe) 25 gm 1X ONCE 10/22/21 15:30 10/22/21 15:31 DC 10/22/21 15:19 25 GM Ondansetron HCl (Zofran) 4 mg 1X ONCE 10/22/21 17:30 10/22/21 17:31 UNV Sodium Chloride 1,000 ml @ 1,000 mls/hr 1X ONCE 10/22/21 17:00 10/22/21 17:59 (HANANE CHRISTENSEN APRN) Allergies: Allergies: Allergies Coded Allergies Type Severity Reaction Last Updated Verified No Known Drug Allergies 10/22/21 No (HANANE CHRISTENSEN APRN) Physical Exam: PE: Constitutional: Well developed, well nourished, no acute distress, non-toxic appearance. [] HENT: Normocephalic, atraumatic, bilateral external ears normal, oropharynx moist, no oral exudates, nose normal. [] Eyes: PERRLA, EOMI, conjunctiva normal, no discharge. [] Neck: Normal range of motion, no tenderness, supple, no stridor. [] Cardiovascular:Heart rate regular rhythm, no murmur [] Lungs & Thorax: Bilateral breath sounds clear to auscultation [] Abdomen: Bowel sounds normal, soft, no tenderness, no masses, no pulsatile masses. [] Skin: Warm, dry, no erythema, no rash. [] Back: No tenderness, no CVA tenderness. [] Extremities: No tenderness, no cyanosis, no clubbing, ROM intact, no edema. [] Neurologic: Alert and oriented X 3, normal motor function, normal sensory function, no focal deficits noted. [] Psychologic: Affect normal, judgement normal, mood normal. [] (HANANE CHRISTENSEN APRN) Current Patient Data: Labs: Laboratory Tests Test 10/22/21 15:03 10/22/21 15:18 10/22/21 16:49 10/22/21 16:51 Glucose (Fingerstick) 56 mg/dL (70-99) L 112 mg/dL (70-99) H White Blood Count 6.4 x10^3/uL (4.0-11.0) Red Blood Count 4.02 x10^6/uL (3.50-5.40) Hemoglobin 11.4 g/dL (12.0-15.5) L Hematocrit 36.5 % (36.0-47.0) Mean Corpuscular Volume 91 fL (79-100) Mean Corpuscular Hemoglobin 29 pg (25-35) Mean Corpuscular Hemoglobin Concent 31 g/dL (31-37) Red Cell Distribution Width 14.5 % (11.5-14.5) Platelet Count 292 x10^3/uL (140-400) Neutrophils (%) (Auto) 64 % (31-73) Lymphocytes (%) (Auto) 27 % (24-48) Monocytes (%) (Auto) 6 % (0-9) Eosinophils (%) (Auto) 3 % (0-3) Basophils (%) (Auto) 0 % (0-3) Neutrophils # (Auto) 4.1 x10^3uL (1.8-7.7) Lymphocytes # (Auto) 1.7 x10^3/uL (1.0-4.8) Monocytes # (Auto) 0.4 x10^3/uL (0.0-1.1) Eosinophils # (Auto) 0.2 x10^3/uL (0.0-0.7) Basophils # (Auto) 0.0 x10^3/uL (0.0-0.2) Sodium Level 141 mmol/L (136-145) Potassium Level 4.5 mmol/L (3.5-5.1) Chloride Level 105 mmol/L (98-107) Carbon Dioxide Level 26 mmol/L (21-32) Anion Gap 10 (6-14) Blood Urea Nitrogen 26 mg/dL (7-20) H Creatinine 1.4 mg/dL (0.6-1.0) H Estimated GFR (Cockcroft-Gault) 49.7 BUN/Creatinine Ratio 19 (6-20) Glucose Level 74 mg/dL (70-99) Calcium Level 9.8 mg/dL (8.5-10.1) Total Bilirubin 0.2 mg/dL (0.2-1.0) Aspartate Amino Transferase (AST) 24 U/L (15-37) Alanine Aminotransferase (ALT) 29 U/L (14-59) Alkaline Phosphatase 80 U/L (46-116) Total Protein 7.8 g/dL (6.4-8.2) Albumin 3.5 g/dL (3.4-5.0) Albumin/Globulin Ratio 0.8 (1.0-1.7) L Urine Collection Type Unknown Urine Color Yellow Urine Clarity Clear Urine pH 5.5 Urine Specific [place] 1.025 Urine Protein 30 mg/dl (NEG-TRACE) Urine Glucose (UA) Neg mg/dL (NEG) Urine Ketones (Stick) Neg mg/dL (NEG) Urine Blood Mod (NEG) Urine Nitrite Neg (NEG) Urine Bilirubin Neg (NEG) Urine Urobilinogen Dipstick 0.2 mg/dL (0.2 mg/dL) Urine Leukocyte Esterase Trace (NEG) Urine RBC 1-2 /HPF (0-2) Urine WBC 20-40 /HPF (0-4) Urine Squamous Epithelial Cells Many /LPF Urine Bacteria Mod /HPF (0-FEW) Urine Hyaline Casts Mod /HPF Test 10/22/21 16:54 POC Urine HCG, Qualitative hcg negative (Negative) Vital Signs: Vital Signs Date Time Temp Pulse Resp B/P (MAP) Pulse Ox O2 Delivery O2 Flow Rate FiO2 10/22/21 15:21 76 16 115/69 (84) 100 Room Air (HANANE CHRISTENSEN APRN) EKG: EKG: [] (HANANE CHRISTENSEN APRN) Radiology/Procedures: Radiology/Procedures: [] (HANANE CHRISTENSEN APRN) Heart Score: C/O Chest Pain: No Risk Factors: Risk Factors: DM, Current or recent (<one month) smoker, HTN, HLP, family history of CAD, obesity. Risk Scores: Score 0 - 3: 2.5% MACE over next 6 weeks - Discharge Home Score 4 - 6: 20.3% MACE over next 6 weeks - Admit for Clinical Observation Score 7 - 10: 72.7% MACE over next 6 weeks - Early Invasive Strategies (HANANE CHRISTENSEN APRN) Course & Med Decision Making: Course & Med Decision Making Pertinent Labs and Imaging studies reviewed. (See chart for details) 41-year-old female presents with hypoglycemia. Patient's blood sugar at home was reading in the 30s. On arrival patient's blood sugar is low 100s. Patient's denying any symptoms at this time. Patient was given D50 along with a NS liter bolus. Reassessment patient is feeling fine and blood sugar shows 115. UA is positive for infection. Patient given Macrobid. Patient states that [place] [facility] [place] Patient will roller picker her prescription from her PCP tomorrow. First dose given here today. Discussed return precautions in length with patient. Patient verbalized she understood discharge instructions and return precautions. Patient is hemodynamically stable upon disposition. Patient is to follow-up with PCP (HANANE CHRISTENSEN APRN) Course & Med Decision Making I was the ER physician during date of ER visit. INCIDENT HANDLER independently saw and treated patient. Although I was in the department seeing other patients, no assistance was requested. Electronically signed, Eden Smith DO (EDEN SMITH DO) Sana Disclaimer: Sana Disclaimer: This electronic medical record was generated, in whole or in part, using a voice recognition dictation system. (HANANE CHRISTENSEN APRN) Departure Departure: Impression: Primary Impression: Hypoglycemia Additional Impression: Urinary tract infection Qualified Codes: N30.00 - Acute cystitis without hematuria Disposition: HOME / SELF CARE / HOMELESS Condition: STABLE Referrals: AMILCAR ZHOU MD (PCP) Patient Instructions: Hypoglycemia, [id number], Urinary Tract Infection, Child Additional Instructions: You are seen in the emergency room for hypoglycemia and urinary tract infection. You were given D50 along with normal saline. Your blood sugar was in the 100's after treatment. I also gave you 1 dose of antibiotic prior to discharge. Please roller picker your antibiotics tomorrow from your PCP to treat your urinary tract infection. Please return to the emergency room if you have worsening symptoms or concerns. Contact your PCP tomorrow and let them know that you were seen in the emergency room. EMERGENCY DEPARTMENT GENERAL DISCHARGE INSTRUCTIONS Thank you for coming to [facility] ([facility]) today and trusting us with you care. We trust that you had a positivie experience in our Emergency Department. If you wish to speak to the department management, you may call the director at [phone]. YOUR FOLLOW UP INSTRUCTIONS ARE FOLLOWS: 1. Do you have a private Doctor? If you do not have a private doctor, please ask for a resource list of physicians or clinics that may be able to assist you with follow up care. 2. The Emergency Physician has interpreted your x-rays. The X-Ray specialist will also review them. If there is a change in the findings, you will be notified in 48 hours when at all possible. 3. A lab test or culture has been done, your results will be reviewed and you will be notified if you need a change in treatment. ADDITIONAL INSTRUCTIONS AND INFORMATION: 1. Your care today has been supervised by a physician who is specially trained in emergency care. Many problems require more than one evaluation for a complete diagnosis and treatment. We recommend that you schedule your follow up appointment as recommended to ensure complete treatment of you illness or injury. If you are unable to obtain follow up care and continue to have a problem, or if your condition worsens, we recommend that you return to the ED. 2. We are not able to safely determine your condition over the phone nor are we able to give sound medical advice over the phone. For these safety reasons, if you call for medical advice we will ask you to come to the ED for further evaluation. 3. If you have any questions regarding these discharge instructions please call the ED at [phone]. SAFETY INFORMATION: In the interest of safety, wellness, and injury prevention; we encourage you to wear your sealbelt, if you smoke; quite smoking, and we encourage family to use a protective helmet for bicycling and other sporting events that present an increased risk for head injury. IF YOUR SYMPTOMS WORSEN OR NEW SYMPTOMS DEVELOP, OR YOU HAVE CONCERNS ABOUT YOUR CONDITION; OR IF YOUR CONDITION WORSENS WHILE YOU ARE WAITING FOR YOUR FOLLOW UP APPOINTMENT; EITHER CONTACT YOUR PRIMARY CARE DOCTOR, THE PHYSICIAN WHOSE NAME AND NUMBER YOU WERE GIVEN, OR RETURN TO THE ED IMMEDIATELY. HANANE CHRISTENSEN APRN Oct 22, 2021 17:33 EDEN SMITH DO Oct 24, 2021 11:13
== END 2021-10-22 18:50 | disposition home or self-care (01) ==
LOC: MERGE 14:58 → ER 14:58
DX: N30.00 Acute cystitis without hematuria (principal); E16.2 Hypoglycemia, unspecified
CPT/HCPCS: 36415; 80053; 81001; 81025; 82947; 85025; 87086; 96374; 96375; 96376; 99284; J2405; J7030